=== PATIENT | female | born 1970 | race Caucasian/White ===

== ENCOUNTER 2017-10-05 17:55 | Emergency (ER) | payer OTHER ==
[2017-10-05] MEDS ORDERED: IV NORMAL SALINE 1,000ML 1,000 ML IV ONE (18:45)
--- NOTE | 2017-10-05 18:49 | PHYS DOC ---
Past History Past Medical History: Fibromyalgia Past Surgical History: Tonsillectomy Alcohol Use: None Drug Use: None Adult General Chief Complaint Chief Complaint: ABDOMINAL PAIN HPI HPI 46-year-old female presents with 3 day history of progressive lower abdominal pain. The patient just had a pelvic ultrasound after her Pap smear due to concern for fibroids and for some reason [facility] has been unable to read for 3 days. the patient's pain has increased since her test. She describes the pain as a pressure sensation it feels like it's moving lower. today, she had a short episode of stabbing, sharp pain that has resolved. She denies dysuria or urinary frequency. She denies vaginal discharge. She is constipated at baseline. She only goes a return to 3 days. She has not had a bowel movement in 3 days. The patient denies nausea, vomiting, fever or chills. When she last talked to her OB, her OB recommended she come to the emergency room for evaluation. Review of Systems Review of Systems Constitutional: Denies fever or chills [] Eyes: Denies change in visual acuity, redness, or eye pain [] HENT: Denies nasal congestion or sore throat [] Respiratory: Denies cough or shortness of breath [] Cardiovascular: No additional information not addressed in HPI [] GI: Denies abdominal pain, nausea, vomiting, bloody stools or diarrhea [] : Suprapubic pain[] Musculoskeletal: Denies back pain or joint pain [] Integument: Denies rash or skin lesions [] Neurologic: Denies headache, focal weakness or sensory changes [] Endocrine: Denies polyuria or polydipsia [] All other systems were reviewed and found to be within normal limits, except as documented in this note. Current Medications Current Medications Current Medications Medications (Trade) Dose Ordered Sig/Negrita Start Time Stop Time Status Last Admin Dose Admin Sodium Chloride 1,000 ml @ 1,000 mls/hr 1X ONCE 10/05/17 18:45 10/05/17 19:44 Allergies Allergies Allergies Coded Allergies Type Severity Reaction Last Updated Verified No Known Drug Allergies 10/05/17 No Physical Exam Physical Exam Constitutional: Well developed, well nourished, no acute distress, non-toxic appearance. [] HENT: Normocephalic, atraumatic, bilateral external ears normal, oropharynx moist, no oral exudates, nose normal. [] Eyes: PERRLA, EOMI, conjunctiva normal, no discharge. [] Neck: Normal range of motion, no tenderness, supple, no stridor. [] Cardiovascular:Heart rate regular rhythm, no murmur [] Lungs & Thorax: Bilateral breath sounds clear to auscultation [] Abdomen: Bowel sounds normal, soft, no masses, no pulsatile masses. Mild suprapubic tenderness without rebound or guarding.[] Skin: Warm, dry, no erythema, no rash. [] Back: No tenderness, no CVA tenderness. [] Extremities: No tenderness, no cyanosis, no clubbing, ROM intact, no edema. [] Neurologic: Alert and oriented X 3, normal motor function, normal sensory function, no focal deficits noted. [] Psychologic: Affect normal, judgement normal, mood normal. [] Current Patient Data Vital Signs Vital Signs Date Time Temp Pulse Resp B/P (MAP) Pulse Ox O2 Delivery O2 Flow Rate FiO2 10/05/17 18:24 98.1 52 18 99 Room Air EKG EKG [] Radiology/Procedures Radiology/Procedures [] Impressions: CT scan of the abdomen and pelvis with contrast 2017 CLINICAL HISTORY: Lower abdominal pain. TECHNIQUE: After the intravenous administration of 74 cc of Omnipaque 300, contiguous, 5 mm axial sections were obtained through the abdomen and pelvis. One or more of the following individualized dose reduction techniques were utilized for this study: 1. Automated exposure control. 2. Adjustment of the mA and/or kV according to patient size. 3. Use of iterative reconstruction technique. FINDINGS: Images through the lung bases demonstrate minimal dependent subsegmental atelectasis bilaterally. The liver, spleen, pancreas, adrenal glands and kidneys are within normal limits. The abdominal aorta tapers normally. The gallbladder is well-distended. No free fluid or free air is seen within the abdomen. Air and stool is seen throughout the colon. There is no evidence of bowel obstruction. The appendix is well-visualized and is within normal limits. Images through the pelvis demonstrate the urinary bladder distended with urine. A 1.8 cm dominant follicle is seen within the left ovary. A rounded slightly heterogeneous mass is seen projecting superiorly from the posterior aspect of the body/fundus of the uterus. This measures 6.3 cm in greatest diameter. It is consistent with a uterine fibroid. No free fluid is seen within the pelvis. Calcifications are seen within the pelvis consistent with phleboliths. Mild S-shaped curvature of the thoracolumbar spine is seen. Degenerative changes are seen involving the lower lumbar spine. IMPRESSION: 6.3 cm uterine fibroid. No acute abnormality is seen. Electronically signed by: Roger Castaneda MD (10/05/2017 7:41 PM) [facility] Course & Med Decision Making Course & Med Decision Making Pertinent Labs and Imaging studies reviewed. (See chart for details) The patient's labs are unremarkable. Her urine is pending, but do not believe it is necessary. Her CT scan showed a 6.3 cm uterine fibroid. This is likely causing her pain. I will discharge her with [place] 5/. She will follow with her OB on Sunday to discuss treatment options and further pain management. She is stable for discharge at this time. [] Dragon Disclaimer Dragon Disclaimer This electronic medical record was generated, in whole or in part, using a voice recognition dictation system. Departure Departure: Referrals: LIANET MEJIA DO (PCP) SIXTO RUFFIN DO Oct 05, 2017 18:49
[2017-10-05] MEDS ORDERED: IOHEXOL 300 MG/ML 75 ML VIAL. IV ONE (19:00)
[2017-10-05 19:10] LABS: BASO % 1 % (0-3); EOS # 0.1 x10^3/uL (0.0-0.7); EOS % 2 % (0-3); HEMATOCRIT 38.6 % (36.0-47.0); HEMOGLOBIN 13.1 g/dL (12.0-15.5); LYMPH # 1.6 x10^3/uL (1.0-4.8); LYMPH % 23 % (24-48); MEAN CORPUSCULAR HEMOGLOBIN 31 pg (25-35); MEAN CORPUSCULAR HGB CONC 34 g/dL (31-37); MEAN CORPUSCULAR VOLUME 92 fL (79-100); MONO # 0.5 x10^3/uL (0.0-1.1); MONO % 7 % (0-9); NEUT # 4.6 x10^3uL (1.8-7.7); NEUT % 67 % (31-73); PLATELET COUNT 307 x10^3/uL (140-400); RED BLOOD COUNT 4.19 x10^6/uL (3.50-5.40); RED CELL DISTRIBUTION WIDTH 13.6 % (11.5-14.5); WHITE BLOOD COUNT 6.8 x10^3/uL (4.0-11.0)
--- NOTE | 2017-10-05 19:45 | RAD ---
CT scan of the abdomen and pelvis with contrast 2017 CLINICAL HISTORY: Lower abdominal pain. TECHNIQUE: After the intravenous administration of 74 cc of Omnipaque 300, contiguous, 5 mm axial sections were obtained through the abdomen and pelvis. One or more of the following individualized dose reduction techniques were utilized for this study: 1. Automated exposure control. 2. Adjustment of the mA and/or kV according to patient size. 3. Use of iterative reconstruction technique. FINDINGS: Images through the lung bases demonstrate minimal dependent subsegmental atelectasis bilaterally. The liver, spleen, pancreas, adrenal glands and kidneys are within normal limits. The abdominal aorta tapers normally. The gallbladder is well-distended. No free fluid or free air is seen within the abdomen. Air and stool is seen throughout the colon. There is no evidence of bowel obstruction. The appendix is well-visualized and is within normal limits. Images through the pelvis demonstrate the urinary bladder distended with urine. A 1.8 cm dominant follicle is seen within the left ovary. A rounded slightly heterogeneous mass is seen projecting superiorly from the posterior aspect of the body/fundus of the uterus. This measures 6.3 cm in greatest diameter. It is consistent with a uterine fibroid. No free fluid is seen within the pelvis. Calcifications are seen within the pelvis consistent with phleboliths. Mild S-shaped curvature of the thoracolumbar spine is seen. Degenerative changes are seen involving the lower lumbar spine. IMPRESSION: 6.3 cm uterine fibroid. No acute abnormality is seen. Electronically signed by: Roger Castaneda MD (10/05/2017 7:41 PM) [facility]
[2017-10-05 20:09] LABS: ALBUMIN 3.9 g/dL (3.4-5.0); ALBUMIN/GLOBULIN RATIO 1.1 (1.0-1.7); CALCIUM 8.9 mg/dL (8.5-10.1); CREATININE 0.6 mg/dL (0.6-1.0); GFR 107.2; POTASSIUM 3.5 mmol/L (3.5-5.1); TOTAL BILIRUBIN 0.6 mg/dL (0.2-1.0); TOTAL PROTEIN 7.3 g/dL (6.4-8.2)
[2017-10-05] MEDS ORDERED: HYDR-971 PO (21:20)
[2017-10-05 21:25] VITALS: BP 121/74
[2017-10-05 21:45] LABS: CLARITY,URINE CLEAR; COLOR,URINE STRAW
[2017-10-05 21:46] LABS: BACTERIA,URINE FEW /HPF (0-FEW); BILIRUBIN,URINE NEG (NEG); GLUCOSE,URINE NEG (NEG); NITRITE,URINE NEG (NEG); SQUAMOUS EPITHELIAL CELL,UR FEW /LPF; UROBILINOGEN,URINE 0.2 mg/dL (0.2 mg/dL)
== END 2017-10-05 21:28 | disposition home or self-care (01) ==
LOC: ER 17:55
DX: D25.9 Leiomyoma of uterus, unspecified (principal); K59.00 Constipation, unspecified; M79.7 Fibromyalgia
CPT/HCPCS: 36415; 74177; 80053; 81001; 83690; 85025; 99285; Q9967; J7030